=== PATIENT | male | born 1995 | race Caucasian/White ===

== ENCOUNTER 2021-03-25 03:43 | Emergency (ER) | payer OTHER ==
[~2021-03-25] VITALS: Ht 177.8 cm; Wt 86.1 kg
[2021-03-25] MEDS ORDERED: NORCO, ANEXSIA 5/325MG TABLET (HYDROcodone/ACETAMINOPHEN) PO ONE (09:20)
[2021-03-25] MEDS ORDERED: LIDOCAINE 2% MDV 20ML VIAL SC ONE (09:20)
[2021-03-25] MEDS ORDERED: BACTRIM 160MG/800MG DS TAB PO ONE (09:20)
[2021-03-25] MEDS ORDERED: BACT800T5 PO (10:20)
[2021-03-25] MEDS ORDERED: HYDR-3713 PO (10:20)
[2021-03-25] MEDS ORDERED: ONDANSETRON 4 MG ORAL DISINTEGRATING TAB PO ONE (10:45)
[2021-03-25] MEDS ORDERED: ONDA4TAB6 PO (11:17)
[2021-03-25 11:28] VITALS: BP 119/70
== END 2021-03-25 11:32 | disposition home or self-care (01) ==
LOC: M ED 03:43
DX: L05.01 Pilonidal cyst with abscess (principal); K62.89 Other specified diseases of anus and rectum
CPT/HCPCS: 10060; 87070; 87077; 87184; 99283; Q0162